=== PATIENT | female | born 2000 | race Hispanic/Latino ===

== ENCOUNTER 2018-04-30 09:52 | Emergency (ER) | payer SELFPAY ==
[2018-04-30 10:23] LABS: Bilirubin Negative (Negative); Blood, Urine Negative (Negative); Clarity CLEAR (Clear); Glucose, Urine (Dipstick) Negative (Negative); Leukocyte Moderate (Negative); Nitrite Negative (Negative); Protein, Urine (Dipstick) Negative (Neg-Trace); Specific Gravity, Urine 1.028 (1.002-1.036)
[2018-04-30 10:25] LABS: Bacteria/HPF None Seen HPF (None Seen); Pathc Cast-AUWi Flag 0.14 (0-2.49); Pregnancy Test - Urine (BHCG) Negative (Negative); Pregu Control Background? CLEAR/WHITE (CLR/WHITE); Pregu Control Bar Appear? YES (CONTROL BAR); RBC/HPF 0-3 HPF (0-3); Specific Gravity 1.028 (1.002-1.036)
[2018-04-30] MEDS ORDERED: Dicyclomine 20 MG TAB ONE (10:40)
[2018-04-30] MEDS ORDERED: Ondansetron ODT 4 MG TAB ONE (10:41)
[2018-04-30 10:43] LABS: Hyaline Casts/LPF 0-3 HYALINE CAST LPF (0-3 Hyaline); Renal Epithelial 0-3 HPF (0-3); Transitional Epithelial 0-3 HPF (0-3)
[2018-04-30 11:24] LABS: #Eosinphils 0.2 thou/uL (0.0-0.7); #Lymphocytes 2.6 thou/uL (1.20-3.40); #Monocytes 0.9 thou/uL (0.11-0.59); #Neutrophils 4.9 thou/uL (1.40-6.50); %Basophils 0.2 % (0.0-1.0); %Eosinophils 2.5 % (0.0-10.0); %Lymphocytes 30.1 % (28.0-48.0); %Monocytes 10.3 % (0.0-4.0); %Neutrophils 56.8 % (31.0-61.0); Hemoglobin 11.2 g/dL (12.0-16.0); Mean Corpuscular HGB CONC 32.3 g/dL (32.0-36.0); Mean Corpuscular Hemoglobin 29.2 pg (25.0-35.0); Mean Corpuscular Volume 90.2 fL (78.0-98.0); Mean Platelet Volume 6.7 fL (7.4-10.4); Platelet Count 379 thou/uL (130-400); RBC Distribution Width 12.5 % (11.5-14.5); Red Blood Cell (RBC) Count 3.84 mill/uL (4.00-5.20); White Blood Cell (WBC) Count 8.6 thou/uL (4.8-10.8)
[2018-04-30 11:48] LABS: ALT (SGPT) 50 U/L (8-55); AST (SGOT) 21 U/L (5-30); Albumin 3.4 g/dL (3.5-5.0); Alkaline Phosphatase 105 U/L (40-150); Anion Gap 9 mmol/L (10-20); BUN (Urea Nitrogen) 12 mg/dL (8.4-21.0); Bilirubin, Total 0.3 mg/dL (0.2-1.2); Calc. Creatinine Clearance 0 mL/min (70-130); Calcium 8.7 mg/dL (7.8-10.44); Carbon Dioxide 26 mmol/L (22-29); Chloride 106 mmol/L (98-107); Estimated GFR-MDRD Greater than 90; Globulin 3.7 g/dL (2.4-3.5); Glucose 86 mg/dL (70-105); Potassium 4.1 mmol/L (3.5-5.1); Protein, Total 7.1 g/dL (6.0-8.3); Sodium 137 mmol/L (136-145)
== END 2018-04-30 12:31 | disposition home or self-care (01) ==
LOC: ERS 09:52
DX: N39.0 Urinary tract infection, site not specified (principal); R11.2 Nausea with vomiting, unspecified; R19.7 Diarrhea, unspecified; F17.210 Nicotine dependence, cigarettes, uncomplicated
CPT/HCPCS: 36415; 80053; 81003; 81015; 81025; 85025; 99284; Q0162

== ENCOUNTER 2018-05-07 20:05 | Emergency (ER) | payer SELFPAY ==
[2018-05-07 20:26] LABS: #Basophils 0.1 thou/uL (0.0-0.2); #Eosinphils 0.2 thou/uL (0.0-0.7); #Lymphocytes 3.3 thou/uL (1.20-3.40); #Monocytes 0.9 thou/uL (0.11-0.59); #Neutrophils 5.2 thou/uL (1.40-6.50); %Basophils 1.1 % (0.0-1.0); %Eosinophils 2.2 % (0.0-10.0); %Lymphocytes 34.2 % (28.0-48.0); %Monocytes 9.1 % (0.0-4.0); %Neutrophils 53.4 % (31.0-61.0); Hemoglobin 12.2 g/dL (12.0-16.0); Mean Corpuscular HGB CONC 32.5 g/dL (32.0-36.0); Mean Corpuscular Volume 89.2 fL (78.0-98.0); Mean Platelet Volume 6.3 fL (7.4-10.4); Platelet Count 452 thou/uL (130-400); RBC Distribution Width 12.4 % (11.5-14.5); White Blood Cell (WBC) Count 9.7 thou/uL (4.8-10.8)
[2018-05-07 20:47] LABS: ALT (SGPT) 23 U/L (8-55); AST (SGOT) 18 U/L (5-30); Albumin 4.1 g/dL (3.5-5.0); Alkaline Phosphatase 116 U/L (40-150); Anion Gap 13 mmol/L (10-20); BUN (Urea Nitrogen) 15 mg/dL (8.4-21.0); Bilirubin, Total 0.3 mg/dL (0.2-1.2); Calc. Creatinine Clearance 0 mL/min (70-130); Calcium 9.7 mg/dL (7.8-10.44); Carbon Dioxide 26 mmol/L (22-29); Chloride 102 mmol/L (98-107); Estimated GFR-MDRD 90; Globulin 4.2 g/dL (2.4-3.5); Glucose 80 mg/dL (70-105); Protein, Total 8.3 g/dL (6.0-8.3); Sodium 137 mmol/L (136-145)
[2018-05-07 22:03] LABS: Bilirubin Negative (Negative); Blood, Urine Negative (Negative); Clarity CLEAR (Clear); Glucose, Urine (Dipstick) Negative (Negative); Leukocyte Small (Negative); Nitrite Negative (Negative); Protein, Urine (Dipstick) Negative (Neg-Trace); Specific Gravity, Urine 1.013 (1.002-1.036)
[2018-05-07 22:04] LABS: Bacteria/HPF None Seen HPF (None Seen); Hyaline Casts/LPF 0-3 HYALINE CAST LPF (0-3 Hyaline); Pregnancy Test - Urine (BHCG) Negative (Negative); Pregu Control Background? CLEAR/WHITE (CLR/WHITE); Pregu Control Bar Appear? YES (CONTROL BAR); RBC/HPF 0-3 HPF (0-3); Specific Gravity 1.013 (1.002-1.036); Squamous Epithelial 0-3 HPF (0-3)
--- NOTE | 2018-05-07 23:14 | ULT ---
RIGHT UPPER QUADRANT ULTRASOUND: 05/07/18 INDICATION: Pain. FINDINGS: There is no focal hepatic lesion. There is increased echogenicity of the gallbladder lumen without sh adowing. The gallbladder is contracted which has limited assessment. Common duct measures 5 mm, at up per limits of normal in size for the patient's age. No ascites. 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 IMPRESSION: Contracted gallbladder limiting assessment. There is nonshadowing increased echogenicity within the c ontracted gallbladder. This could relate to cholelithiasis, or polyp. Tumefactive sludge is an addit ional consolidation. Consider ultrasound followup when gallbladder is more adequately distended for m ore reliable evaluation of the gallbladder. Borderline sized common duct. Correlate with biliary laboratory values. POS: LAZARA
== END 2018-05-07 22:44 | disposition home or self-care (01) ==
LOC: ERS 20:05
DX: K80.20 Calculus of gallbladder without cholecystitis without obstruction (principal); N39.0 Urinary tract infection, site not specified; F17.210 Nicotine dependence, cigarettes, uncomplicated
CPT/HCPCS: 36415; 76705; 80053; 81003; 81015; 81025; 83690; 85025; 87077; 87086

== ENCOUNTER 2019-09-14 11:26 | Emergency (ER) | payer SELFPAY ==
[2019-09-14] MEDS ORDERED: Morphine 4 MG/ML VIAL ONE (12:58)
[2019-09-14] MEDS ORDERED: Ondansetron PF 4 MG/2 ML Vial ONE (12:58)
[2019-09-14 13:21] LABS: #Basophils 0.1 thou/uL (0.0-0.2); #Eosinphils 0.6 thou/uL (0.0-0.7); #Lymphocytes 2.7 thou/uL (1.20-3.40); #Monocytes 0.8 thou/uL (0.11-0.59); #Neutrophils 6.2 thou/uL (1.40-6.50); %Basophils 0.6 % (0.0-1.0); %Eosinophils 6.1 % (0.0-10.0); %Monocytes 7.4 % (0.0-4.0); %Neutrophils 59.9 % (31.0-61.0); Hemoglobin 13.8 g/dL (12.0-16.0); Mean Corpuscular HGB CONC 33.2 g/dL (32.0-36.0); Mean Corpuscular Hemoglobin 30.3 pg (25.0-35.0); Mean Corpuscular Volume 91.2 fL (78.0-98.0); Mean Platelet Volume 7.3 fL (7.4-10.4); Platelet Count 482 thou/uL (130-400); Red Blood Cell (RBC) Count 4.56 mill/uL (4.00-5.20); White Blood Cell (WBC) Count 10.3 thou/uL (4.8-10.8)
[2019-09-14 13:24] LABS: BHCG - Serum Negative (NEGATIVE); Pregs Control Background? CLEAR/WHITE (CLR/WHITE); Pregs Control Bar Appear? YES (CONTROL BAR)
--- NOTE | 2019-09-14 13:43 | ULT ---
ULTRASOUND ABDOMEN LIMITED: (RIGHT UPPER QUADRANT) DATE: 09/14/2019 HISTORY: 18-year-old female with right upper quadrant abdominal pain and nausea. Patient is not NPO. FINDINGS: Gallbladder:Moderately contracted. There is partial visualization of a intraluminal 14 mm hyperechoic shadowing mass in the body of the gallbladder. No definite mural thickening or pericholecystic fluid. Common duct: 3 mm. Liver:Normal size and echogenicity Pancreas:Completely obscured by shadowing from bowel gas Right kidney:No hydronephrosis IMPRESSION: Positive for cholelithiasis
[2019-09-14 13:45] LABS: ALT (SGPT) 17 U/L (8-55); AST (SGOT) 11 U/L (5-34); Albumin 4.3 g/dL (3.5-5.0); Alkaline Phosphatase 101 U/L (40-100); Anion Gap 12 mmol/L (10-20); BUN (Urea Nitrogen) 16 mg/dL (7.0-18.7); Bilirubin, Total 0.2 mg/dL (0.2-1.2); Calc. Creatinine Clearance 0 mL/min (70-130); Calcium 9.3 mg/dL (7.8-10.44); Carbon Dioxide 25 mmol/L (22-29); Chloride 106 mmol/L (98-107); Estimated GFR-MDRD Greater than 90; Globulin 3.7 g/dL (2.4-3.5); Glucose 95 mg/dL (70-105); Lipase 12 U/L (8-78); Sodium 139 mmol/L (136-145)
== END 2019-09-14 15:08 | disposition home or self-care (01) ==
LOC: ERS 11:26
DX: K80.20 Calculus of gallbladder without cholecystitis without obstruction (principal); F17.210 Nicotine dependence, cigarettes, uncomplicated
CPT/HCPCS: 76705; 80053; 83690; 84703; 85025; 96374; 96375; J2270; J2405

== ENCOUNTER 2023-08-27 18:51 | Emergency (ER) | payer SELFPAY ==
[2023-08-27] MEDS ORDERED: Ketorolac Tromethamine 30 MG (1 mL) VIAL ONE (20:18)
== END 2023-08-27 22:25 | disposition home or self-care (01) ==
LOC: ERS 18:51
DX: M54.16 Radiculopathy, lumbar region (principal); F17.210 Nicotine dependence, cigarettes, uncomplicated; F17.290 Nicotine dependence, other tobacco product, uncomplicated
CPT/HCPCS: 96372; 99282; J1885